=== PATIENT | male | born 1965 | race Caucasian/White ===

== ENCOUNTER 2019-03-28 15:04 | Observation (INO) | payer OTHER ==
[2019-03-28] MEDS: ASPIRIN 325 MG TAB PO (15:54)
[2019-03-28] MEDS: NITROGLYCERIN 2% 1 GM OINT PKT TD (15:55)
[2019-03-28 15:56] LABS: ADD MAN DIFF? NO
[2019-03-28 15:58] LABS: BASOPHIL # 0.1 10^3/ul (0.0-0.1); BASOPHILS % 1.2 % (0.0-2.0); EOSINOPHILS # 0.2 10^3/ul (0.0-0.5); EOSINOPHILS % 2.8 % (0.0-7.0); HEMATOCRIT 44.8 % (42.0-52.0); HEMOGLOBIN 14.6 g/dl (14.0-18.0); LYMPHOCYTES # 1.8 10^3/ul (0.8-2.9); MEAN CORPUSCULAR HEMOGLOBIN 29.4 pg (29.0-33.0); MEAN CORPUSCULAR HGB CONC 32.6 g/dl (32.0-37.0); MEAN CORPUSCULAR VOLUME 90.3 fl (82.0-101.0); MEAN PLATELET VOLUME 10.8 fl (7.4-10.4); MONOCYTE # 0.6 10^3/ul (0.3-0.9); MONOCYTES % 9.1 % (0.0-11.0); NEUTROPHIL # 4.1 10^3/ul (1.6-7.5); NEUTROPHILS % 60.5 % (39.0-77.0); PLATELET COUNT 236 10^3/UL (140-415); RED BLOOD COUNT 4.96 10^6/ul (4.70-6.10)
[2019-03-28 15:58] LABS: WHITE BLOOD COUNT 6.8 10^3/ul (4.8-10.8)
[2019-03-28 16:05] LABS: ALANINE AMINOTRANSFERASE 47 IU/L (13-69); ALBUMIN 4.1 g/dl (3.3-4.9); ALBUMIN/GLOBULIN RATIO 1.41; ALKALINE PHOSPHATASE 75 IU/L (42-121); ANION GAP 10 (5-13); ASPARTATE AMINO TRANSFERASE 30 IU/L (15-46); BILIRUBIN,INDIRECT 0.2 mg/dl (0-1.1); BILIRUBIN,TOTAL 0.2 mg/dl (0.2-1.3); BLOOD UREA NITROGEN 21 mg/dl (7-20); CALCIUM 9.5 mg/dl (8.4-10.2); CARBON DIOXIDE 20 mmol/L (21-31); CHLORIDE 112 mmol/L (97-110); CREATININE 1.13 mg/dl (0.61-1.24); Estimated GFR > 60 mL/min (>60); GLUCOSE 144 mg/dl (70-220); POTASSIUM 3.6 mmol/L (3.5-5.1); SODIUM 142 mmol/L (135-144)
[2019-03-28 16:17] LABS: TROPONIN-I < 0.012 ng/ml (0.000-0.120)
[2019-03-28] MEDS ORDERED: ACETAMINOPHEN 325 MG TAB PO (18:30)
[2019-03-28] MEDS ORDERED: ONDANSETRON 4 MG INJ IV ×2 (18:30→19:00)
[2019-03-28] MEDS: SOD CHLORIDE 0.9% 1,000 ML IV ×3 (18:38→22:29)
[2019-03-28] MEDS ORDERED: DOCUSATE SODIUM 100 MG CAP PO (19:00)
[2019-03-28] MEDS ORDERED: HYDROCODONE/APAP (5/325) TAB PO (19:00)
[2019-03-28] MEDS ORDERED: NACL 0.9% 3 ML SYG IV (19:00)
[2019-03-28] MEDS ORDERED: ZOLPIDEM 5 MG TAB PO (19:00)
[2019-03-28] MEDS ORDERED: BISACODYL (EC) 5 MG TAB PO (19:00)
[2019-03-28] MEDS ORDERED: DEXTROSE 50% 50 ML SYRINGE IV ×2 (19:30)
[2019-03-28] MEDS ORDERED: GLUCOSE GEL 15 GRAM TUBE BUCCAL (19:30)
[2019-03-28] MEDS ORDERED: GLUCAGON 1 MG INJ IM (19:30)
[2019-03-28] MEDS ORDERED: GLUCOSE GEL 15 GRAM TUBE PO ×2 (19:30)
[2019-03-28 19:39] LABS: LIPASE 109 U/L (23-300)
[2019-03-28] MEDS: ASPIRIN (EC) 81 MG TAB PO (20:08)
[2019-03-28] MEDS: LISINOPRIL 5 MG TAB PO (20:09)
[2019-03-28] MEDS ORDERED: GUAIFENESIN/DM 5ML CUP PO (20:30)
[2019-03-28] MEDS ORDERED: INSULIN ASPART [NOVOLOG] 3 ML PEN SC (21:00)
[2019-03-28] MEDS ORDERED: NON-FORMULARY/PATIENT OWN MED (Quetiapine Fumarate* 50 MG) PO (21:00)
[2019-03-28] MEDS: morphine 2 MG INJ IV (21:12)
[2019-03-28 21:56] LABS: TROPONIN-I < 0.012 ng/ml (0.000-0.120)
[2019-03-28] MEDS: FAMOTIDINE 20 MG TAB PO (22:28)
[2019-03-28] MEDS: QUETIAPINE 25 MG TAB PO (22:30)
[2019-03-28] MEDS: INSULIN ASPART [NOVOLOG] 3 ML PEN SC (22:31)
[2019-03-29] MEDS: morphine 2 MG INJ IV ×2 (01:41→11:56)
[2019-03-29] MEDS: ACCU-CHEK XX (02:00)
[2019-03-29] MEDS: ACETAMINOPHEN 325 MG TAB PO (03:08)
[2019-03-29 06:36] LABS: ADD UMIC NO; UR ASCORBIC ACID NEGATIVE (NEGATIVE); UR BILIRUBIN (Dip) NEGATIVE (NEGATIVE); UR BLOOD (Dip) NEGATIVE (NEGATIVE); UR CLARITY CLEAR (CLEAR); UR COLOR YELLOW (YELLOW); UR GLUCOSE (Dip) NEGATIVE (NEGATIVE); UR KETONES (Dip) NEGATIVE (NEGATIVE); UR LEUKOCYTE ESTERASE (Dip) NEGATIVE Leu/ul (NEGATIVE); UR NITRITE (Dip) NEGATIVE (NEGATIVE); UR SPECIFIC GRAVITY (Dip) 1.035 (1.003-1.030); UR TOTAL PROTEIN (Dip) NEGATIVE (NEGATIVE); UR UROBILINOGEN (Dip) NEGATIVE (NEGATIVE)
[2019-03-29 06:45] LABS: ADD MAN DIFF? NO
[2019-03-29 06:50] LABS: WHITE BLOOD COUNT 10.5 10^3/ul (4.8-10.8)
[2019-03-29 06:50] LABS: BASOPHIL # 0.1 10^3/ul (0.0-0.1); BASOPHILS % 0.6 % (0.0-2.0); EOSINOPHILS # 0.2 10^3/ul (0.0-0.5); EOSINOPHILS % 1.9 % (0.0-7.0); HEMATOCRIT 43.5 % (42.0-52.0); HEMOGLOBIN 14.3 g/dl (14.0-18.0); LYMPHOCYTES # 1.5 10^3/ul (0.8-2.9); LYMPHOCYTES % 14.2 % (15.0-51.0); MEAN CORPUSCULAR HEMOGLOBIN 29.7 pg (29.0-33.0); MEAN CORPUSCULAR HGB CONC 32.9 g/dl (32.0-37.0); MEAN CORPUSCULAR VOLUME 90.2 fl (82.0-101.0); MEAN PLATELET VOLUME 10.6 fl (7.4-10.4); MONOCYTE # 0.7 10^3/ul (0.3-0.9); MONOCYTES % 6.4 % (0.0-11.0); NEUTROPHIL # 8.1 10^3/ul (1.6-7.5); NEUTROPHILS % 76.5 % (39.0-77.0); PLATELET COUNT 205 10^3/UL (140-415); RED BLOOD COUNT 4.82 10^6/ul (4.70-6.10); RED CELL DISTRIBUTION WIDTH 13.1 % (11.5-14.5)
[2019-03-29 06:55] LABS: BARBITURATES Negative (NEGATIVE); BENZODIAZEPINES Negative (NEGATIVE); CANNABINOIDS Negative (NEGATIVE); COCAINE Negative (NEGATIVE); OPIATES Positive (NEGATIVE)
[2019-03-29 07:02] LABS: AMPHETAMINE/METHAMPHETAMINE POSITIVE (NEGATIVE)
[2019-03-29 07:04] LABS: HEMOGLOBIN A1C 5.6 % (0-5.9)
[2019-03-29 07:08] LABS: LIPASE 517 U/L (23-300)
[2019-03-29 07:09] LABS: CHOL/HDL RATIO 5.8 RATIO; HDL CHOLESTEROL 32 mg/dl (28-71); LDL CHOLESTEROL,CALCULATED 113 mg/dl; TRIGLYCERIDES 206 mg/dl (0-149)
[2019-03-29 07:09] LABS: CHOLESTEROL 186 mg/dl (100-200)
[2019-03-29 07:10] LABS: INR 0.99; PROTIME 13.2 Sec (11.9-14.9)
[2019-03-29 07:14] LABS: ALANINE AMINOTRANSFERASE 42 IU/L (13-69); ALBUMIN 3.2 g/dl (3.3-4.9); ALBUMIN/GLOBULIN RATIO 1.06; ALKALINE PHOSPHATASE 72 IU/L (42-121); ANION GAP 6 (5-13); ASPARTATE AMINO TRANSFERASE 27 IU/L (15-46); BILIRUBIN,INDIRECT 0.6 mg/dl (0-1.1); BILIRUBIN,TOTAL 0.6 mg/dl (0.2-1.3); BLOOD UREA NITROGEN 20 mg/dl (7-20); CALCIUM 8.8 mg/dl (8.4-10.2); CARBON DIOXIDE 22 mmol/L (21-31); CHLORIDE 111 mmol/L (97-110); CREATININE 0.92 mg/dl (0.61-1.24); Estimated GFR > 60 mL/min (>60); GLUCOSE 110 mg/dl (70-220); MAGNESIUM 1.9 mg/dl (1.7-2.5); PHOSPHORUS 2.5 mg/dl (2.5-4.9); SODIUM 139 mmol/L (135-144); TOTAL PROTEIN 6.2 g/dl (6.1-8.1)
[2019-03-29 07:18] LABS: TROPONIN-I < 0.012 ng/ml (0.000-0.120)
[2019-03-29] MEDS: INSULIN ASPART [NOVOLOG] 3 ML PEN SC ×2 (07:55→11:50)
[2019-03-29] MEDS: BUPROPION (SR) 100 MG TAB PO (08:38)
[2019-03-29] MEDS: FAMOTIDINE 20 MG TAB PO (08:39)
[2019-03-29] MEDS: LISINOPRIL 5 MG TAB PO (08:39)
[2019-03-29] MEDS: ENOXAPARIN 40 MG/0.4 ML SYG SC (08:45)
== END 2019-03-29 17:00 | disposition home or self-care (01) ==
LOC: E/R 15:04 → TEL 18:30
DX: R07.89 Other chest pain (principal); I10 Essential (primary) hypertension; E78.00 Pure hypercholesterolemia, unspecified; F17.200 Nicotine dependence, unspecified, uncomplicated; R73.03 Prediabetes; E78.5 Hyperlipidemia, unspecified
CPT/HCPCS: 36415; 71045; 80053; 80061; 80307; 81003; 82962; 83036; 83690; 83735; 84100; 84443; 84484; 85025; 85610; 93005; 99285-25; G0378